=== PATIENT | female | born 1960 | race Two or more races ===

== ENCOUNTER 2019-07-17 21:42 | Emergency (ER) | payer OTHER ==
[~2019-07-17] VITALS: Ht 160 cm; Wt 49.0 kg
--- NOTE | 2019-07-17 22:06 | NUR ---
"HIT BACK OF THE HEAD ON A METAL RACK AT WORK AT 4PM TODAY; PAIN 6/10 NOTICABLE SMALL BUMP ON BACK OF THE HEAD, DENIES NAUSEA/VOMITTING" PT AAOX4, -SOB, NAD NOTED, VSS ,PENDING MD FULLER
[2019-07-17 23:00] VITALS: BP 119/75
--- NOTE | 2019-07-17 23:20 | NUR ---
Patient discharged to home in stable condition. Written and verbal after care instructions given. Patient verbalizes understanding of instruction.
== END 2019-07-17 23:22 | disposition home or self-care (01) ==
LOC: ER 21:45
DX: S06.0X0A Concussion without loss of consciousness, initial encounter (principal); W22.8XXA Striking against or struck by other objects, initial encounter; Y93.89 Activity, other specified; Y92.89 Other specified places as the place of occurrence of the external cause; Y99.8 Other external cause status
CPT/HCPCS: 70450-TC